=== PATIENT | female | born 1970 | race Caucasian/White ===

== ENCOUNTER 2017-03-29 19:45 | Emergency (ER) | payer MEDICAID, OTHER ==
[~2017-03-29] VITALS: Ht 160 cm; Wt 102.1 kg
--- NOTE | 2017-03-29 20:38 | NUR ---
CALLED FOR TRIAGE, NO ANSWER.
--- NOTE | 2017-03-29 20:51 | NUR ---
CALLED FOR TRIAGE, FAMILY STATES PT WAITING IN CAR.
[2017-03-29 20:58] VITALS: BP 140/80
[2017-03-29] MEDS ORDERED: ACETAMINOPHEN ES 500 MG TABLET ONE (21:11)
[2017-03-29] MEDS ORDERED: ACETAMINOPHEN ES 500 MG TABLET PO ONE (21:30)
== END 2017-03-29 21:15 | disposition home or self-care (01) ==
LOC: ER 19:49
DX: S76.012A Strain of muscle, fascia and tendon of left hip, initial encounter (principal); S76.011A Strain of muscle, fascia and tendon of right hip, initial encounter; X58.XXXA Exposure to other specified factors, initial encounter; Y93.89 Activity, other specified; Y92.89 Other specified places as the place of occurrence of the external cause; Y99.8 Other external cause status
CPT/HCPCS: A4606; Z7610

== ENCOUNTER 2017-07-22 19:13 | Emergency (ER) | payer MEDICAID, OTHER ==
[~2017-07-22] VITALS: Ht 160 cm; Wt 108.9 kg
[2017-07-22 19:20] VITALS: BP 140/84
[2017-07-22] MEDS ORDERED: NAPROXEN 250 MG TABLET PO ONE (20:30)
[2017-07-22 20:39] LABS: APPEARANCE,URINE Clear (CLEAR); BILIRUBIN,URINE Negative (NEGATIVE); BLOOD, URINE Small Ery/uL (NEGATIVE); COLOR,URINE Yellow (YELLOW); KETONES,URINE Negative (NEGATIVE); LEUKOCYTE ESTERASE ,URINE Negative (NEGATIVE); NITRITE, URINE Negative (NEGATIVE); PH,URINE 6.5 (5.0-8.0); PROTEIN,URINE Negative (NEGATIVE); UGLUCOSE Negative (NEGATIVE); UROBILINOGEN,URINE 0.2 EU/dL (0.2)
[2017-07-22] MEDS ORDERED: NAPROXEN 250 MG TABLET ONE (20:44)
[2017-07-22 21:20] LABS: BACTERIA,URINE None seen /HPF (None Seen); SQUAMOUS EPITHELIAL CELL,UR Few /HPF (None Seen); WBC,URINE 0-2 /HPF (0-3)
== END 2017-07-22 21:27 | disposition home or self-care (01) ==
LOC: ER 19:15
DX: M54.5 Low back pain (principal)
CPT/HCPCS: 81001; 99283; A4606; Z7610; 81000-TC

== ENCOUNTER 2017-08-08 16:58 | Emergency (ER) | payer MEDICAID, OTHER ==
[~2017-08-08] VITALS: Ht 160 cm; Wt 111.1 kg
--- NOTE | 2017-08-08 17:47 | NUR ---
C/O LEFT HAND DOGBITE TODAY. NAD. VSS PENDING ER MD MELENDEZ
[2017-08-08] MEDS ORDERED: TDAP [DIPH/PERTUSSIS/TET] 0.5 ML VIAL IM ONE ×2 (17:58→18:00)
[2017-08-08] MEDS ORDERED: BACITRACIN ZINC OINT PACKET 1 EA PACKET TP ONE ×2 (18:00→18:16)
[2017-08-08] MEDS ORDERED: HYDROCODONE/APAP 5/325MG 1 EACH TABLET ONE (18:17)
[2017-08-08] MEDS ORDERED: HYDROCODONE/APAP 5/325MG 1 EACH TABLET PO ONE (18:30)
--- NOTE | 2017-08-08 18:40 | NUR ---
Patient discharged to home in stable condition. Written and verbal after care instructions given. Patient verbalizes understanding of instruction.
[2017-08-08 18:41] VITALS: BP 122/78
== END 2017-08-08 18:42 | disposition home or self-care (01) ==
LOC: ER 17:02
DX: S61.452A Open bite of left hand, initial encounter (principal); E66.01 Morbid (severe) obesity due to excess calories; Z68.41 Body mass index [BMI] 40.0-44.9, adult; W54.0XXA Bitten by dog, initial encounter; Y93.89 Activity, other specified; Y92.89 Other specified places as the place of occurrence of the external cause; Y99.8 Other external cause status; Z23 Encounter for immunization
CPT/HCPCS: 29125; 73130; 90471; 90715; 99284; A4606; A6402 ×2; A6403; Z7610

== ENCOUNTER 2017-09-09 19:27 | Emergency (ER) | payer MEDICAID ==
[~2017-09-09] VITALS: Ht 160 cm; Wt 111.1 kg
[2017-09-09 19:48] VITALS: BP 143/73
--- NOTE | 2017-09-09 19:55 | NUR ---
CALLED FOR ROOM ASSIGNMENT X2; NOT IN LOBBY
[2017-09-09] MEDS ORDERED: HYDROCODONE/APAP 5/325MG 1 EACH TABLET PO ONE (21:30)
[2017-09-09] MEDS ORDERED: HYDROCODONE/APAP 5/325MG 1 EACH TABLET ONE (21:35)
--- NOTE | 2017-09-09 21:39 | NUR ---
PT STATES SHE IS NOT AND SIGNED WAIVER FORM. MADE AWARE
[2017-09-09 22:24] LABS: APPEARANCE,URINE CLEAR (CLEAR); BILIRUBIN,URINE NEGATIVE (NEGATIVE); BLOOD, URINE 2+ Ery/uL (NEGATIVE); COLOR,URINE YELLOW (YELLOW); KETONES,URINE NEGATIVE (NEGATIVE); LEUKOCYTE ESTERASE ,URINE NEGATIVE (NEGATIVE); NITRITE, URINE NEGATIVE (NEGATIVE); PROTEIN,URINE NEGATIVE (NEGATIVE); UGLUCOSE NEGATIVE (NEGATIVE); UROBILINOGEN,URINE 0.2 EU/dL (0.2)
[2017-09-09 22:36] LABS: BACTERIA,URINE Few /HPF (None Seen); SQUAMOUS EPITHELIAL CELL,UR Few /HPF (None Seen); WBC,URINE 0-2 /HPF (0-3)
--- NOTE | 2017-09-09 23:26 | NUR ---
Patient discharged to home in stable condition. Written and verbal after care instructions given. Patient verbalizes understanding of instruction.
== END 2017-09-09 23:27 | disposition home or self-care (01) ==
LOC: ER 19:32
DX: M54.5 Low back pain (principal)
CPT/HCPCS: 72110-TC; 72220-TC; 81000-TC; 84703-TC; A4606; Z7610